=== PATIENT | female | born 1970 | race Caucasian/White ===

== ENCOUNTER 2025-05-04 21:03 | Emergency (ER) | payer OTHER ==
[~2025-05-04] VITALS: Ht 167.6 cm; Wt 68.9 kg
[2025-05-04] MEDS ORDERED: ATACAND16 MG (21:59)
[2025-05-04] MEDS ORDERED: ESCITALOPRA5 MG/5 ML (22:00)
[2025-05-04] MEDS ORDERED: EZALLOR SPRINKL10 MG (22:00)
[2025-05-04] MEDS ORDERED: ROGAINE60 GM (22:00)
[2025-05-04] MEDS ORDERED: LIDOCAINE HCL 1% 10ML VIAL PERCUT ONE (22:30)
[2025-05-04] MEDS ORDERED: KETOROLAC TROMETHAMINE 60 MG VIAL IM ONE ×2 (22:30→23:22)
[2025-05-04] MEDS ORDERED: TETANUS & DIPHTHERIA TOX,ADULT 0.5 ML VIAL IM ONE (22:30)
[2025-05-04] MEDS ORDERED: CEFTRIAXONE SODIUM 1,000 MG VIAL IM ONE (22:30)
[2025-05-04] MEDS ORDERED: LIDOCAINE HCL 1% 10ML VIAL ONE (23:22)
[2025-05-04] MEDS ORDERED: CEFTRIAXONE SODIUM 1,000 MG VIAL ONE (23:22)
[2025-05-04] MEDS ORDERED: DIPHTH,PERTUSS(ACELL),TET VAC 0.5 ML SYRINGE IM ONE (23:23)
[2025-05-04] MEDS ORDERED: DIPHTH,PERTUSS(ACELL),TET VAC 0.5 ML SYRINGE IM STA (23:43)
[2025-05-05] MEDS ORDERED: PEPCID AC20 MG PO (01:08)
[2025-05-05] MEDS ORDERED: CEFUROXIME500 MG PO (01:08)
== END 2025-05-05 01:44 | disposition home or self-care (01) ==
LOC: ER 21:03
DX: S01.81XA Laceration without foreign body of other part of head, initial encounter (principal); W05.1XXA Fall from non-moving nonmotorized scooter, initial encounter; Y93.89 Activity, other specified; Y92.89 Other specified places as the place of occurrence of the external cause; Y99.8 Other external cause status; I10 Essential (primary) hypertension
CPT/HCPCS: 12054; 70450; 70486; 72125; 90471; 90714; J1670